=== PATIENT | female | born 1965 | race Caucasian/White ===

== ENCOUNTER 2018-09-05 10:37 | Emergency (ER) | payer MEDICAID, OTHER ==
[~2018-09-05] VITALS: Ht 167.6 cm; Wt 49.9 kg
--- NOTE | 2018-09-05 10:52 | ED Abdominal Pain ---
General Stated Complaint: BLOOD SUGAR LOW Source of Information: Patient Exam Limitations: No Limitations History of Present Illness Date Seen by Provider: Sep 05, 2018 Time Seen by Provider: 10:49 Initial Comments To ER with general weakness, nausea, abdominal pain. This became worse today. She states that her blood sugar was high this morning so she took insulin and now it's low. She's been unable to eat anything for it because she is too nauseous. Primary care Elvia Timing/Duration: 1-2 Days Severity/Quality: Moderate Location: Generalized Abdomen Activities at Onset: None Associated Symptoms: Nausea/Vomiting Allergies and Home Medications Allergies Coded Allergies: aspirin (Verified Allergy, Unknown, 09/05/18) morphine (Verified Allergy, Unknown, 09/05/18) Home Medications Metronidazole 500 Mg Tablet, 500 MG PO TID Prescribed by: CLARKE POSADA on 09/05/18 1353 Prochlorperazine Maleate 10 Mg Tablet, 10 MG PO Q8H PRN for NAUSEA/VOMITING-1ST LINE Prescribed by: CLARKE POSADA on 09/05/18 1353 Sulfamethoxazole/Trimethoprim 1 Each Tablet, 1 EACH PO BID Prescribed by: CLARKE POSADA on 09/05/18 1353 Patient Home Medication List Home Medication List Reviewed: Yes Review of Systems Review of Systems Constitutional: see HPI EENTM: No Symptoms Reported Respiratory: No Symptoms Reported Cardiovascular: No Symptoms Reported Gastrointestinal: See HPI, Abdominal Pain, Nausea Genitourinary: No Symptoms Reported Musculoskeletal: no symptoms reported Skin: no symptoms reported Psychiatric/Neurological: No Symptoms Reported Endocrine: No Symptoms Reported Physical Exam Vital Signs Vital Signs - First Documented 09/05/18 10:40 Temp 95.7 Pulse 74 Resp 16 B/P (MAP) 97/73 (81) Pulse Ox 96 O2 Delivery Room Air Capillary Refill : Height/Weight/BMI Height: '" Weight: lbs. oz. kg; BMI Method: General Appearance: WD/WN, no apparent distress, thin, other (chronically ill, older than stated age) HEENT: PERRL/EOMI, other (several missing teeth) Neck: non-tender, full range of motion Respiratory: no respiratory distress, no accessory muscle use Cardiovascular: regular rate, rhythm, no murmur Gastrointestinal: normal bowel sounds, soft, tenderness Extremities: normal range of motion, non-tender Neurologic/Psychiatric: alert Skin: normal color, warm/dry Focused Exam Lactate Level 09/05/18 11:30: Lactic Acid Level 1.91 Lactic Acid Level Laboratory Tests Test 09/05/18 11:30 Lactic Acid Level 1.91 MMOL/L (0.50-2.00) Progress/Results/Core Measures Results/Orders Lab Results Laboratory Tests Test 09/05/18 10:48 09/05/18 10:50 09/05/18 11:30 09/05/18 11:42 Range/Units Glucometer 59 *L 191 H 70-110 MG/DL White Blood Count 19.2 H 4.3-11.0 10^3/uL Red Blood Count 3.68 L 4.35-5.85 10^6/uL Hemoglobin 11.2 L 11.5-16.0 G/DL Hematocrit 34 L 35-52 % Mean Corpuscular Volume 92 80-99 FL Mean Corpuscular Hemoglobin 30 25-34 PG Mean Corpuscular Hemoglobin Concent 33 32-36 G/DL Red Cell Distribution Width 15.0 H 10.0-14.5 % Platelet Count 660 H 130-400 10^3/uL Mean Platelet Volume 9.9 7.4-10.4 FL Neutrophils (%) (Auto) 68 42-75 % Lymphocytes (%) (Auto) 24 12-44 % Monocytes (%) (Auto) 7 0-12 % Eosinophils (%) (Auto) 1 0-10 % Basophils (%) (Auto) 0 0-10 % Neutrophils # (Auto) 13.0 H 1.8-7.8 X 10^3 Lymphocytes # (Auto) 4.7 H 1.0-4.0 X 10^3 Monocytes # (Auto) 1.3 H 0.0-1.0 X 10^3 Eosinophils # (Auto) 0.2 0.0-0.3 10^3/uL Basophils # (Auto) 0.1 0.0-0.1 10^3/uL Neutrophils % (Manual) 68 % Lymphocytes % (Manual) 31 % Monocytes % (Manual) 1 % Eosinophils % (Manual) 0 % Basophils % (Manual) 0 % Band Neutrophils 0 % Target Cells SLIGHT Man-[place] Bodies SLIGHT Sodium Level 136 135-145 MMOL/L Potassium Level 3.7 3.6-5.0 MMOL/L Chloride Level 105 98-107 MMOL/L Carbon Dioxide Level 22 21-32 MMOL/L Anion Gap 9 5-14 MMOL/L Blood Urea Nitrogen 18 7-18 MG/DL Creatinine 0.54 L 0.60-1.30 MG/DL Estimat Glomerular Filtration Rate > 60 BUN/Creatinine Ratio 33 Glucose Level 56 *L 70-105 MG/DL Calcium Level 8.6 8.5-10.1 MG/DL Corrected Calcium 9.4 8.5-10.1 MG/DL Total Bilirubin 0.1 0.1-1.0 MG/DL Aspartate Amino Transf (AST/SGOT) 17 5-34 U/L Alanine Aminotransferase (ALT/SGPT) 19 0-55 U/L Alkaline Phosphatase 164 H 40-136 U/L C-Reactive Protein High Sensitivity 0.12 0.00-0.50 MG/DL Total Protein 6.4 6.4-8.2 GM/DL Albumin 3.0 L 3.2-4.5 GM/DL Lipase 71 8-78 U/L Lactic Acid Level 1.91 0.50-2.00 MMOL/L Test 09/05/18 13:28 Range/Units Glucometer 114 H 70-110 MG/DL My Orders Orders - CLARKE POSADA APRN Cbc With Automated Diff (09/05/18 10:46) Drug Screen Stat (Urine) (09/05/18 10:46) Accucheck Stat ONCE (09/05/18 10:46) Lipase (09/05/18 10:46) Hs C Reactive Protein (09/05/18 10:46) Ns Iv 1000 Ml (Sodium Chloride 0.9%) (09/05/18 11:00) Comprehensive Metabolic Panel (09/05/18 10:46) Ua Culture If Indicated (09/05/18 10:46) Ondansetron Injection (Zofran Injectio (09/05/18 11:00) D50w (Emergency) Syringe (Dextrose 50% 5 (09/05/18 11:00) Manual Differential (09/05/18 10:50) Blood Culture (09/05/18 11:24) Lactic Acid Analyzer (09/05/18 11:24) Accucheck Stat ONCE (09/05/18 11:38) Iohexol Injection (Omnipaque 350 Mg/Ml 1 (09/05/18 11:45) Contrast Received (Contrast Received) (09/05/18 11:45) Ns (Ivpb) (Sodium Chloride 0.9% Ivpb Bag (09/05/18 11:45) Ns Iv 1000 Ml (Sodium Chloride 0.9%) (09/05/18 12:00) Diphenhydramine Injection (Benadryl Inje (09/05/18 12:00) Haloperidol Injection (Haldol Injectio (09/05/18 12:00) Ct Abdomen/Pelvis Wo (09/05/18 11:38) Promethazine Injection (Phenergan Injec (09/05/18 13:00) Ceftriaxone For Iv Use (Rocephin For I (09/05/18 13:30) Metronidazole 500mg/100ml Ivpb (Flagyl 5 (09/05/18 13:30) Ketamine Injection (Ketalar Injection) (09/05/18 14:00) Ns (Ivpb) (Sodium Chloride 0.9%) (09/05/18 14:00) Medications Given in ED Current Medications Medications Dose Ordered Sig/Miri Route Start Time Stop Time Status Last Admin Dose Admin Ceftriaxone Sodium 1000 mg/ Sodium Chloride 50 ml @ 100 mls/hr ONCE ONCE IV 09/05/18 13:30 09/05/18 13:59 DC 09/05/18 13:37 100 MLS/HR Dextrose 25 ml ONCE ONCE IV 09/05/18 11:00 09/05/18 11:01 DC 09/05/18 11:09 25 ML Ketamine HCl 40 mg ONCE ONCE IV 09/05/18 14:00 09/05/18 14:01 DC 09/05/18 13:59 40 MG Ondansetron HCl 8 mg ONCE ONCE IVP 09/05/18 11:00 09/05/18 11:01 DC 09/05/18 11:09 8 MG Promethazine HCl 25 mg ONCE ONCE IVP 09/05/18 13:00 09/05/18 13:01 DC 09/05/18 13:03 25 MG Sodium Chloride 250 ml @ 999 mls/hr Q16M ONCE IV 09/05/18 14:00 09/05/18 14:15 DC 09/05/18 13:59 999 MLS/HR Vital Signs/I&O 09/05/18 10:40 Temp 95.7 Pulse 74 Resp 16 B/P (MAP) 97/73 (81) Pulse Ox 96 O2 Delivery Room Air Diagnostic Imaging Diagonstic Imaging: CT Comments NAME: SERGIO [facility]IA [facility] REC#: [id number] PT STATUS: REG ER : 1965 PHYSICIAN: CLARKE POSADA APRN ADMIT DATE: 09/05/18/ER Draft Date of Exam:09/05/18 CT ABDOMEN/PELVIS WO PROCEDURE: CT abdomen and pelvis without contrast. TECHNIQUE: Multiple contiguous axial images were obtained through the abdomen and pelvis without the use of intravenous contrast. INDICATION: Abdominal pain, history of pancreatitis. COMPARISON: There are no prior studies available for comparison. 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 There are numerous surgical clips in the left upper quadrant. The pancreas is difficult to visualize due to the patient's paucity of retroperitoneal fat. There do appear to be at least two contiguous cysts in the body of the pancreas. These have a conglomerate size of approximately 2.4 x 3.4 cm. These could represent pancreatic pseudocyst. There is no significant distortion of the peripancreatic fat to suggest acute pancreatitis, however. There is generalized thickening of the wall of the splenic flexure of the colon. This does raise the question of colitis, although there is no distortion of the pericolonic fat in this area to suggest edema/inflammation. There are also numerous fluid-filled segments of small bowel present. This appearance is more likely related to an ileus than to a bowel obstruction. However if there is clinical concern regarding a small bowel obstruction, then a contrast small bowel exam would be recommended. There is also a dilated fluid and gas-filled segment of bowel surrounded by surgical sutures low in the pelvis on the right. Correlation with the patient's surgical history would be recommended. There is a considerable amount of fecal material throughout the colon. The appendix was not well visualized but there are no indirect signs of acute appendicitis. There is no pelvic mass or free fluid collection noted. The uterus is surgically absent. The urinary bladder is distended by urine but shows no obvious abnormality. The liver is mildly enlarged and there do appear to be a few calcifications scattered throughout the liver. The biliary tree does not seem to be significantly dilated and there is no focal mass involving the liver. The gallbladder is not well visualized and may be surgically absent. The adrenals were also poorly imaged. The left kidney is more superior than usually seen due to the prior splenectomy. There does appear to be a small 1.7 cm cyst in the lateral aspect of the left kidney. There is no evidence for hydronephrosis of either kidney and there is no solid mass identified. The aorta and the inferior vena cava are unremarkable for an acute abnormality. The stomach is not well visualized. The lung bases are clear. The bone windows show no sign of a fracture or of a destructive lesion. IMPRESSION: 1. There are postoperative changes, consistent with prior splenectomy. There has also been a previous resection of the bowel in the right lower quadrant. Correlation with the patient's surgical history would be recommended. 2. The cysts within the body of the pancreas may represent residual pancreatic pseudocysts. The pancreas itself was poorly imaged but there is no distortion of the peripancreatic fat to suggest acute pancreatitis. If further imaging is desired, then a followup exam with contrast would be recommended. 3. The fluid-filled segments of small bowel are nonspecific but may be related to an ileus as opposed to a small bowel obstruction. Recommendations, as above. 4. The apparent thickening of the wall of the splenic flexure of the colon does raise the question of colitis. 5. These results were discussed with Clarke Posada APRN. Dictated on workstation # [id number] Dict: 09/05/18 1311 Trans: 09/05/18 1334 [id number] Interpreted by: PRAVIN BROOKS MD Electronically signed by: Departure Communication (Admissions) [id number] discussed the case with Dr. Gonzalez. Discussed admission with the leukocytosis is likely from her prior splenectomy. She states that she had a splenectomy because her pancreatic pseudocyst was "pressing on the spleen" done at 2 years ago. Unlikely that any of the intra-abdominal pathogens would be encapsulated so her splenectomy does not place her at higher risk for infection from these things. We'll do a dose of IV antibiotics here and then discharged home with oral antibiotics and pain medication. Patient states that she is been having loose stools for the past 3 weeks. Denies any antibiotic use within the past [address] scan shows concerning for colitis. I'll place her on Bactrim and Flagyl at home, follow-up with primary care. She has had several bowel movements while here in the emergency room 1463- after the ketamine infusion patient is now feeling quite a bit better. We' ll discharge to home. Impression Primary Impression: Nausea & vomiting Qualified Codes: R11.2 - Nausea with vomiting, unspecified Additional Impressions: Abdominal pain Qualified Codes: R10.84 - Generalized abdominal pain Colitis Disposition: HOME, SELF-CARE Condition: Stable Departure-Patient Inst. Decision time for Depature: 13:28 Patient Instructions: Acute Abdomen (Belly Pain) Add. Discharge Instructions: 1. Return to ER for any concerns 2. Follow-up with her doctor next week. Call today to make an appointment. If she could be seen later this week that would be ideal. 3. Scripts Metronidazole (Metronidazole) 500 Mg Tablet 500 MG PO TID, #21 TAB Prov: CLARKE POSADA COFFEE MACHINE TECHNICIAN 09/05/18 Sulfamethoxazole/Trimethoprim (Bactrim Ds Tablet) 1 Each Tablet 1 EACH PO BID, #14 TAB Prov: CLARKE POSADA COFFEE MACHINE TECHNICIAN 09/05/18 Prochlorperazine Maleate (Compazine) 10 Mg Tablet 10 MG PO Q8H PRN for NAUSEA/VOMITING-1ST LINE, #10 TAB Prov: CLARKE POSADA COFFEE MACHINE TECHNICIAN 09/05/18 CLARKE POSADA APRN Sep 05, 2018 10:52
[2018-09-05] MEDS ORDERED: ONDANSETRON 4 MG/2 ML (SDV) Z0FRAN IVP ONE (11:00)
[2018-09-05] MEDS ORDERED: NS IV 1000 ML 1,000 ML IV SCH ×2 (11:00→12:00)
[2018-09-05] MEDS ORDERED: DEXTROSE 50% 50 ML (IMS) SYR IV ONE (11:00)
[2018-09-05 11:10] LABS: BASOPHILS # (AUTO) 0.1 10^3/uL (0.0-0.1); BASOPHILS % (AUTO) 0 % (0-10); EOSINOPHILS # (AUTO) 0.2 10^3/uL (0.0-0.3); EOSINOPHILS % (AUTO) 1 % (0-10); HEMATOCRIT 34 % (35-52); HEMOGLOBIN 11.2 G/DL (11.5-16.0); LYMPHOCYTES # (AUTO) 4.7 X 10^3 (1.0-4.0); LYMPHOCYTES % (AUTO) 24 % (12-44); MEAN CORPUSCULAR HEMOGLOBIN 30 PG (25-34); MEAN CORPUSCULAR HGB CONC 33 G/DL (32-36); MEAN CORPUSCULAR VOLUME 92 FL (80-99); MEAN PLATELET VOLUME 9.9 FL (7.4-10.4); MONOCYTES # (AUTO) 1.3 X 10^3 (0.0-1.0); MONOCYTES % (AUTO) 7 % (0-12); NEUTROPHILS % (AUTO) 68 % (42-75); PLATELET COUNT 660 10^3/uL (130-400); WHITE BLOOD COUNT 19.2 10^3/uL (4.3-11.0)
[2018-09-05 11:28] LABS: ALANINE AMINOTRANSFERASE 19 U/L (0-55); ALKALINE PHOSPHATASE 164 U/L (40-136); BILIRUBIN,TOTAL 0.1 MG/DL (0.1-1.0); BUN/CREATININE RATIO 33; CALCIUM 8.6 MG/DL (8.5-10.1); CARBON DIOXIDE 22 MMOL/L (21-32); CHLORIDE 105 MMOL/L (98-107); CREATININE SERUM 0.54 MG/DL (0.60-1.30); GFR ESTIMATED > 60; LIPASE 71 U/L (8-78); POTASSIUM 3.7 MMOL/L (3.6-5.0); SODIUM 136 MMOL/L (135-145); TOTAL PROTEIN 6.4 GM/DL (6.4-8.2)
--- NOTE | 2018-09-05 11:33 | NUR ---
STUDENTS GOT PT UP TO PEE ET SHE DID NOT AT THIS TIME.
--- NOTE | 2018-09-05 11:38 | NUR ---
LAB NOTIFIED OF NEEDING A BLOOD CULTURE
[2018-09-05 11:40] LABS: GLUCOSE 56 MG/DL (70-105)
[2018-09-05 11:43] LABS: BAND NEUTROPHILS 0 %; BASOPHILS % (MANUAL) 0 %; EOSINOPHILS % (MANUAL) 0 %; HOWELL-JOLLY BODIES SLIGHT; LYMPHOCYTES % (MANUAL) 31 %; MONOCYTES % (MANUAL) 1 %; NEUTROPHILS % (MANUAL) 68 %; TARGET CELLS SLIGHT
[2018-09-05] MEDS ORDERED: IOHEXOL 350 MG/ML 100 ML (OMNIPAQUE 350) VIAL IV ONE (11:45)
[2018-09-05] MEDS ORDERED: NS 100 ML (IVPB) BAG IV ONE (11:45)
[2018-09-05] MEDS ORDERED: RECEIVED CONTRAST (Hold Metformin) IV SCH (11:45)
[2018-09-05] MEDS ORDERED: diphenhydrAMINE 50 MG/ML INJ (BENADRYL) IVP ONE (12:00)
[2018-09-05] MEDS ORDERED: HALOPERIDOL 5 MG/ML (HALDOL) AMP IV ONE (12:00)
--- NOTE | 2018-09-05 12:54 | NUR ---
PT COMPLAINS OF NAUSEA. CLARKE NOTIFIED.
[2018-09-05] MEDS ORDERED: PROMETHAZINE INJ 25 MG/ML (PHENERGAN) AMP IVP ONE (13:00)
[2018-09-05] MEDS ORDERED: metroNIDAZOLE 500MG/100ML IVPB 100 ML IV ONE (13:30)
[2018-09-05] MEDS ORDERED: cefTRIAXone FOR IV USE 1,000 MG in NS (IVPB) 50 ML IV ONE (13:30)
--- NOTE | 2018-09-05 13:34 | Diagnostic Imaging Report ---
PROCEDURE: CT abdomen and pelvis without contrast. TECHNIQUE: Multiple contiguous axial images were obtained through the abdomen and pelvis without the use of intravenous contrast. INDICATION: Abdominal pain, history of pancreatitis. COMPARISON: There are no prior studies available for comparison. 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 There are numerous surgical clips in the left upper quadrant. The pancreas is difficult to visualize due to the patient's paucity of retroperitoneal fat. There do appear to be at least two contiguous cysts in the body of the pancreas. These have a conglomerate size of approximately 2.4 x 3.4 cm. These could represent pancreatic pseudocyst. There is no significant distortion of the peripancreatic fat to suggest acute pancreatitis, however. There is generalized thickening of the wall of the splenic flexure of the colon. This does raise the question of colitis, although there is no distortion of the pericolonic fat in this area to suggest edema/inflammation. There are also numerous fluid-filled segments of small bowel present. This appearance is more likely related to an ileus than to a bowel obstruction. However if there is clinical concern regarding a small bowel obstruction, then a contrast small bowel exam would be recommended. There is also a dilated fluid and gas-filled segment of bowel surrounded by surgical sutures low in the pelvis on the right. Correlation with the patient's surgical history would be recommended. There is a considerable amount of fecal material throughout the colon. The appendix was not well visualized but there are no indirect signs of acute appendicitis. There is no pelvic mass or free fluid collection noted. The uterus is surgically absent. The urinary bladder is distended by urine but shows no obvious abnormality. The liver is mildly enlarged and there do appear to be a few calcifications scattered throughout the liver. The biliary tree does not seem to be significantly dilated and there is no focal mass involving the liver. The gallbladder is not well visualized and may be surgically absent. The adrenals were also poorly imaged. The left kidney is more superior than usually seen due to the prior splenectomy. There does appear to be a small 1.7 cm cyst in the lateral aspect of the left kidney. There is no evidence for hydronephrosis of either kidney and there is no solid mass identified. The aorta and the inferior vena cava are unremarkable for an acute abnormality. The stomach is not well visualized. The lung bases are clear. The bone windows show no sign of a fracture or of a destructive lesion. IMPRESSION: 1. There are postoperative changes, consistent with prior splenectomy. There has also been a previous resection of the bowel in the right lower quadrant. Correlation with the patient's surgical history would be recommended. 2. The cysts within the body of the pancreas may represent residual pancreatic pseudocysts. The pancreas itself was poorly imaged but there is no distortion of the peripancreatic fat to suggest acute pancreatitis. If further imaging is desired, then a followup exam with contrast would be recommended. 3. The fluid-filled segments of small bowel are nonspecific but may be related to an ileus as opposed to a small bowel obstruction. Recommendations, as above. 4. The apparent thickening of the wall of the splenic flexure of the colon does raise the question of colitis. 5. These results were discussed with Don Posada APRN. Dictated by: Dictated on workstation # [id number]
[2018-09-05] MEDS ORDERED: SULF1TAB35 PO (13:53)
[2018-09-05] MEDS ORDERED: PROC-1 PO (13:53)
[2018-09-05] MEDS ORDERED: METR-145 PO (13:53)
[2018-09-05] MEDS ORDERED: NS (IVPB) 250 ML IV ONE (14:00)
[2018-09-05] MEDS ORDERED: KETAMINE HCL 100 MG/ML 5 ML VIAL IV ONE (14:00)
[2018-09-05 14:36] VITALS: BP 131/88
--- NOTE | 2018-09-05 14:40 | NUR ---
HAVE HELPED PT X3 CHANGE HER DEPENDS AND CLEAN HER UP FROM DIARRHEA WHILE SHE HAS BEEN HERE. PT STATES SHE HAS BEEN DOING THIS FOR 3 WEEKS. CLARKE WALTERS AWARE.
== END 2018-09-05 14:36 | disposition home or self-care (01) ==
LOC: ER 10:38
DX: K52.9 Noninfective gastroenteritis and colitis, unspecified (principal); Z88.6 Allergy status to analgesic agent; Z88.5 Allergy status to narcotic agent
CPT/HCPCS: 36415; 74176; 80053; 82962; 83605; 83690; 85007; 85027; 86141; 87040

== ENCOUNTER → 2019-04-15 | Outpatient (CLI) | payer MEDICAID ==
[~2019-04-15] MED LIST: METR-145 PO; PROC-1 PO; SULF1TAB35 PO
--- NOTE | 2019-04-15 10:22 | Diagnostic Imaging Report ---
PROCEDURE: CT head without contrast. TECHNIQUE: Multiple contiguous axial images were obtained through the brain without the use of intravenous contrast. Auto Exposure Controls were utilized during the CT exam to meet ALARA standards for radiation dose reduction. INDICATION: Headache. No prior studies are available for comparison. FINDINGS: The ventricles and sulci are within normal limits. No sulcal effacement or midline shift is detected. No acute intra-axial or extra-axial hemorrhage is detected. Cisterns are patent. Visualized paranasal sinuses are clear. IMPRESSION: No acute intracranial process is detected. Dictated by: Dictated on workstation # [id number]
== END ==
LOC: RAD FS 09:58
PROVIDERS: ATTEND Family Medicine
DX: G43.109 Migraine with aura, not intractable, without status migrainosus (principal)
CPT/HCPCS: 70450

== ENCOUNTER 2020-05-02 13:04 | Emergency (ER) | payer MEDICAID ==
[~2020-05-02] VITALS: Ht 170 cm; Wt 45.0 kg
[2020-05-02 13:15] VITALS: BP 111/67
[2020-05-02] MEDS ORDERED: PROM25TA14 PO (13:28)
[2020-05-02] MEDS ORDERED: IBUP-1780 PO (13:28)
--- NOTE | 2020-05-02 13:28 | ED General ---
General Chief Complaint: General Problems/Pain Stated Complaint: SWOLLEN LEGS;HEADACHE Nursing Triage Note: PT REPORTS SHE KEEPS GOING TO [place] [facility] AND THEY DONT GIVE HER ANYTHING FOR THE HEADACHE. HAS BEEN ONE WEEK SINCE BEING SEEN AND SHE STATES THE PILLS THEY GAVE HER DONT WORK. Nursing Sepsis Screen: No Definite Risk History of Present Illness Date Seen by Provider: May 02, 2020 Time Seen by Provider: 13:15 Initial Comments 54-year-old female presents with the complaint of headache for the past week. See nurse's note above, seen at the [place] recently given prescriptions which she says don't help. Describes history of migraines with nausea. No vomiting. Typical headache pattern without any change in severity or frequency. Allergies and Home Medications Allergies Coded Allergies: aspirin (Verified Allergy, Unknown, 09/05/18) morphine (Verified Allergy, Unknown, 09/05/18) Home Medications Ibuprofen 800 Mg Tablet, 800 MG PO Q8H PRN for PAIN Prescribed by: KERON HIGH on 05/02/20 1328 Metronidazole 500 Mg Tablet, 500 MG PO TID Prescribed by: CLARKE WALTERS on 09/05/18 1353 Prochlorperazine Maleate 10 Mg Tablet, 10 MG PO Q8H PRN for NAUSEA/VOMITING-1ST LINE Prescribed by: CLARKE WALTERS on 09/05/18 1353 Promethazine HCl 25 Mg Tablet, 25 MG PO Q6H PRN for NAUSEA/VOMITING Prescribed by: KERON HIGH on 05/02/20 1328 Sulfamethoxazole/Trimethoprim 1 Each Tablet, 1 EACH PO BID Prescribed by: CLARKE WALTERS on 09/05/18 1353 Patient Home Medication List Home Medication List Reviewed: Yes Review of Systems Review of Systems Constitutional: No fever; malaise; No weakness EENTM: ear pain; No blurred vision, No double vision, No eye pain, No epistaxis Respiratory: No cough, No short of breath Cardiovascular: No chest pain, No palpitations, No syncope Gastrointestinal: No abdominal pain, No constipation, No diarrhea; nausea; No vomiting Musculoskeletal: No back pain, No joint pain Skin: No change in color, No rash Psychiatric/Neurological: Headache; Denies Numbness, Denies Paresthesia, Denies Seizure, Denies Weakness Past Mzhtyoo-Ecpumq-Pubkjt Hx Past Med/Social Hx: Reviewed Nursing Past Med/Soc Hx Patient Social History Alcohol Use: Denies Use Recreational Drug Use: No Smoking Status: Current Everyday Smoker Type Used: Cigarettes 2nd Hand Smoke Exposure: No Recent Foreign Travel: No Contact w/Someone Who Travel: No Recent Infectious Disease Expo: No Recent Hopitalizations: No Physical Abuse: No Sexual Abuse: No Mistreated: No Fear: No Past Medical History Surgeries: Yes (SPLEENECTOMY, RIB REMOVED) Section, Gallbladder Respiratory: No Cardiac: No Neurological: No Genitourinary: No Gastrointestinal: Yes Pancreatitis Musculoskeletal: No Endocrine: Yes Diabetes, Insulin dep HEENT: No Cancer: No Integumentary: No Physical Exam Vital Signs Vital Signs - First Documented 05/02/20 13:15 Temp 36.7 Pulse 105 Resp 18 B/P (MAP) 111/67 (82) Pulse Ox 100 O2 Delivery Room Air Capillary Refill : Less Than 3 Seconds Height, Weight, BMI Height: 5'6.00" Weight: 110lbs. oz. 49.053432eq; 15.00 BMI Method:Estimated General Appearance: No Apparent Distress, Cachetic, Thin Eyes: Bilateral Eye PERRL, Bilateral Eye EOMI HEENT: PERRL/EOMI, Normal ENT Inspection Neck: Non Tender, Supple Respiratory: Chest Non Tender, Lungs Clear, No Respiratory Distress Cardiovascular: Regular Rate, Rhythm, Normal Peripheral Pulses Gastrointestinal: Non Tender, Soft Back: No CVA Tenderness, No Vertebral Tenderness Neurologic/Psychiatric: Alert, Oriented x3, No Motor/Sensory Deficits, Normal Mood/Affect, hourly sign language interpreter II-XII Norm as Tested Skin: Normal Color, Warm/Dry Progress/Results/Core Measures Suspected Sepsis Recent Fever Within 48 Hours: No Infection Criteria Present: None New/Unexplained Altered Menta: No Sepsis Screen: No Definite Risk SIRS Temperature: Pulse: 105 Respiratory Rate: 18 Blood Pressure 111 /67 Mean: 82 Results/Orders My Orders Orders - ROVENSTINE,KERON L DO Ketorolac Injection (Toradol Injection) (05/02/20 13:30) Medications Given in ED Current Medications Medications Dose Ordered Sig/Miri Route Start Time Stop Time Status Last Admin Dose Admin Ketorolac Tromethamine 60 mg ONCE ONCE IM 05/02/20 13:30 05/02/20 13:31 DC 05/02/20 13:27 60 MG Vital Signs/I&O 05/02/20 13:15 Temp 36.7 Pulse 105 Resp 18 B/P (MAP) 111/67 (82) Pulse Ox 100 O2 Delivery Room Air Capillary Refill : Less Than 3 Seconds Blood Pressure Mean: 82 Departure Impression Primary Impression: Chronic pain Qualified Codes: G89.29 - Other chronic pain Additional Impression: Migraine Qualified Codes: G43.909 - Migraine, unspecified, not intractable, without status migrainosus Disposition: 01 HOME, SELF-CARE Condition: Stable Departure-Patient Inst. Decision time for Depature: 13:27 Referrals: LANDEN ELLIOTT MD (PCP/Family) Primary Care Physician Patient Instructions: Migraines (DC) Scripts Ibuprofen (Ibuprofen) 800 Mg Tablet 800 MG PO Q8H PRN for PAIN, #30 TAB 0 Refills Prov: KERON HIGH DO 05/02/20 Promethazine HCl (Promethazine Tablet) 25 Mg Tablet 25 MG PO Q6H PRN for NAUSEA/VOMITING, #10 TAB Prov: KERON HIGH DO 05/02/20 KERON HIGH DO May 02, 2020 13:28
[2020-05-02] MEDS ORDERED: KETOROLAC 60 MG/2 ML VIAL IM ONE (13:30)
== END 2020-05-02 13:30 | disposition home or self-care (01) ==
LOC: EDUNIT# 13:04 → ER FS 13:06
DX: G89.29 Other chronic pain (principal); G43.909 Migraine, unspecified, not intractable, without status migrainosus; F17.210 Nicotine dependence, cigarettes, uncomplicated; Z88.6 Allergy status to analgesic agent; Z88.5 Allergy status to narcotic agent
CPT/HCPCS: 99284